=== PATIENT | female | born 1995 | race Asian ===

== ENCOUNTER 2021-12-10 12:24 | Inpatient (IN) | payer MEDICAID, SELFPAY ==
[~2021-12-10] VITALS: Ht 160 cm; Wt 49.0 kg
[2021-12-10 12:35] VITALS: BP 118/56
--- NOTE | 2021-12-10 12:45 | NUR ---
JAIMIE. HANDED ON URINE CUP.
[2021-12-10] MEDS ORDERED: KETOROLAC 15 MG/ML VIAL IM ONE (14:40)
--- NOTE | 2021-12-10 14:52 | NUR ---
pt requesting to stay in car and refusing to stay in bed at this at time
--- NOTE | 2021-12-10 15:30 | NUR ---
26 y/o F BIB self from home c/o LLQ pain s/p normal vaginal delivery on 11/28/21. Patient A&Ox4, ambulatory, states pain persistent since after vaginal delivery. Pt reports 03/24, cramping/constant, radiating to suprapubic region. Patient also states dysuria. Denies fever, chills, nausea, vomiting, diarrhea, constipation, chest pain, urinary symptoms. Patient also endorses vaginal bleeding saturating 2 pads/day with "dark/bright red blood" with "a couple dime sized clots." Patient also states odor; denies vaginal discharge, discomfort, itchiness. States Ibuprofen at 1100 this morning without relief to symptoms. Last BM: this morning; normal. Suprapubic region tender to touch. PMH/Sx/Meds: Denies NKDA
--- NOTE | 2021-12-10 15:40 | NUR ---
Dr. Go is evaluating patient in chair.
[2021-12-10 16:38] LABS: BASOPHILS # (AUTO) 0.1 K/uL (0.00-0.22); BASOPHILS % (AUTO) 0.5 % (0.0-2.0); EOSINOPHILS # (AUTO) 0.1 K/uL (0-0.4); HEMATOCRIT 36.8 % (36-48); HEMOGLOBIN 12.3 g/dL (12.0-16.0); LYMPHOCYTES # (AUTO) 2.3 K/uL (2.5-16.5); LYMPHOCYTES % (AUTO) 19.4 % (20.5-51.1); MEAN CORPUSCULAR HEMOGLOBIN 30 pg (27-31); MEAN CORPUSCULAR HGB CONC 33 g/dL (33-37); MEAN CORPUSCULAR VOLUME 89.8 fL (80-94); MONOCYTES # (AUTO) 0.6 K/uL (0.8-1.0); MONOCYTES % (AUTO) 4.6 % (1.7-9.3); NEUTROPHILS # (AUTO) 8.9 K/uL (1.8-7.7); NEUTROPHILS % (AUTO) 74.5 % (42.2-75.2); PLATELET COUNT (AUTO) 499 K/uL (140-450); RED CELL DISTRIBUTION WIDTH 13.6 % (11.6-13.7)
[2021-12-10 17:23] LABS: ANION GAP 13.5 (8-16); CARBON DIOXIDE 25.5 mmol/L (21-32); CREATININE 0.6 mg/dL (0.6-1.3)
[2021-12-10 17:31] LABS: APPEARANCE,URINE CLOUDY (CLEAR); BILIRUBIN,URINE NEGATIVE (NEGATIVE); BLOOD, URINE 3+ (NEGATIVE); LEUKOCYTE ESTERASE ,URINE 3+ (NEGATIVE); NITRITE, URINE NEGATIVE (NEGATIVE); UGLUCOSE NEGATIVE (NEGATIVE)
[2021-12-10 17:42] LABS: COLOR,URINE YELLOW (YELLOW)
[2021-12-10 18:07] LABS: RBC,URINE TOO NUMEROUS TO COUN /HPF (0-5); WBC,URINE 80-100 /HPF (0-5)
--- NOTE | 2021-12-10 18:54 | NUR ---
dinner tray given at this time, npo after midnight, pt aware.
--- NOTE | 2021-12-10 18:54 | NUR ---
pt swabbed for raul at this time.
[2021-12-10] MEDS ORDERED: POTASSIUM CHLORIDE 10 MEQ TABER PO PRN (19:05)
[2021-12-10] MEDS ORDERED: MORPHINE SULFATE 2 MG/ML SYR IVP PRN (19:05)
[2021-12-10] MEDS ORDERED: ZOLPIDEM 5 MG TAB PO PRN (19:05)
[2021-12-10] MEDS ORDERED: ONDANSETRON 4 MG/2 ML VIAL IM/IVP PRN (19:05)
[2021-12-10] MEDS ORDERED: guaiFENesin DM 200/20 MG-10 ML 10 ML UDC PO PRN (19:05)
[2021-12-10] MEDS ORDERED: DOCUSATE SODIUM 100 MG GELCAP PO PRN (19:05)
[2021-12-10] MEDS ORDERED: PRETAB PO (19:25)
--- NOTE | 2021-12-10 19:25 | NUR ---
REPORT RECEIVED AT BEDSIDE FROM [facility] DEPUTY DISTRICT CUSTOMS DIRECTOR FOR CONTINUITY OF CARE.
--- NOTE | 2021-12-10 19:57 | NUR ---
LAB AT BEDSIDE TO OBTAIN BLOOD CULTURES
[2021-12-10] MEDS ORDERED: AMPICILLIN/SULBACTAM 3 GM VIAL ONE (20:18)
[2021-12-10] MEDS ORDERED: MISOPROSTOL 100 MCG TAB ONE (20:19)
[2021-12-10 20:33] LABS: PROTHROMBIN TIME 10.4 secs (10.8-13.4)
[2021-12-10 20:38] LABS: CHOL/HDL RATIO 5.8 (1-4.5); FREE T4 (FREE THYROXINE) 1.3 ng/dL (0.76-1.46); MAGNESIUM 2.1 mg/dL (1.8-2.4); PHOSPHORUS 3.6 mg/dL (2.5-4.9); THYROID STIMULATING HORMONE 0.55 uIU/mL (0.34-3.74)
[2021-12-10] MEDS: DEXT 5% /NACL 0.9% 1,000 ML IV SCH (20:38)
[2021-12-10] MEDS: AMPICILLIN/SULBACTAM 3 GM in NACL 0.9% 100 ML IV SCH (20:38)
[2021-12-10] MEDS: MISOPROSTOL 200 MCG TAB PO SCH (20:38)
--- NOTE | 2021-12-10 21:01 | NUR ---
ANTIBIOTICS AND IVF STARTED. REPORT GIVEN TO SREEDHAR BARRIOS VIA TELEPHONE FOR PT TRANSFER.
--- NOTE | 2021-12-10 21:07 | NUR ---
Patient will be admitted to care of DR. PETTIT. Admited to TELE. Will go to room 104A. Belongings list completed. Report to DENIS ELI.
[2021-12-10] MEDS ORDERED: CLINDAMYCIN 900 MG/6 ML VIAL IV ONE (21:45)
[2021-12-10] MEDS: CLINDAMYCIN 900 MG in DEXTROSE 5% 100 ML IV SCH (21:47)
[2021-12-10] MEDS: HYDROcodone/APAP 7.5/325 MG 1 TAB PO PRN (21:55)
[2021-12-10 22:00] VITALS: BP 120/58
--- NOTE | 2021-12-10 22:00 | NUR ---
ADMITTED THIS 26 YEAR OLD FEMALE FROM ER PER JERROD WITH CC OF ABDOMINAL PAIN AND VAGINAL BLEEDING, AMBULATED TO BED WITH STEADY GAIT, VITAL SIGNS STABLE, ORIENTED TO ROOM AND CALL LIGHT, STATED WITH MODERATE VAGINAL BLEEDING, 6/10 PAIN LEVEL AT THIS TIME, WILL MEDICATE PRN, PLAN OF CARE DISCUSSED, INSTRUCTED NPO AFTER MIDNIGHT, SAFETY MEASURES IN PLACE, CALL LIGHT WITHIN REACH.
[2021-12-11] MEDS: MISOPROSTOL 200 MCG TAB PO SCH ×6 (00:20→20:58)
[2021-12-11] MEDS ORDERED: AMPICILLIN/SULBACTAM 3 GM VIAL ONE ×2 (00:25→05:22)
[2021-12-11] MEDS: AMPICILLIN/SULBACTAM 3 GM in NACL 0.9% 100 ML IV SCH ×2 (00:34→06:29)
--- NOTE | 2021-12-11 00:50 | NUR ---
PT COMPLAINING OF LEFT BREAST PAIN DUE TO CURRENTLY LACTATING, BREAST PUMP PROVIDED AND WARM COMPRESS APPLIED TO SITE, ALL NEEDS ATTENDED
[2021-12-11 04:00] VITALS: BP 115/73
[2021-12-11] MEDS ORDERED: CLINDAMYCIN 900 MG/6 ML VIAL IV ONE (04:08)
[2021-12-11] MEDS: CLINDAMYCIN 900 MG in DEXTROSE 5% 100 ML IV SCH (04:22)
[2021-12-11] MEDS ORDERED: cefTRIAXone 1,000 MG VIAL ONE (05:35)
--- NOTE | 2021-12-11 05:40 | NUR ---
PT SLEEPING, EASILY AROUSABLE, FIRST DOSE OF ROCEPHIN IVPB ADMINISTERED, MAINTAINED ON NPO, MONITORED CLOSELY.
--- NOTE | 2021-12-11 07:20 | NUR ---
RECEIVED REPORT FROM GRAPHIC PRODUCTION ARTIST NURSE FOR CONTINUITY OF CARE. PT ASLEEP IN BED. BREATHING SYMMETRICAL. RIGHT WRIST 20G RUNNING NS AT 80CC/HR. FLACC O. CALL LIGHT WITHIN REACH. ALL SAFETY MEASURES IN PLACE.
--- NOTE | 2021-12-11 07:20 | NUR ---
PT SLEEPING, NO SIGNS OF DISTRESS, REPORT GIVEN TO RN ROX FOR CONTINUITY OF CARE.
[2021-12-11 07:23] LABS: ANION GAP 11.8 (8-16); CARBON DIOXIDE 26.1 mmol/L (21-32); CREATININE 0.7 mg/dL (0.6-1.3); POTASSIUM 3.9 mmol/L (3.5-5.1)
[2021-12-11] MEDS: DEXT 5% /NACL 0.9% 1,000 ML IV SCH ×3 (07:35→23:44)
[2021-12-11 07:57] LABS: BASOPHILS % (AUTO) 0.3 % (0.0-2.0); EOSINOPHILS # (AUTO) 0.2 K/uL (0-0.4); EOSINOPHILS % (AUTO) 2.1 % (0.0-4.0); HEMATOCRIT 32.5 % (36-48); HEMOGLOBIN 11.1 g/dL (12.0-16.0); LYMPHOCYTES # (AUTO) 1.9 K/uL (2.5-16.5); LYMPHOCYTES % (AUTO) 22.9 % (20.5-51.1); MEAN CORPUSCULAR HEMOGLOBIN 31 pg (27-31); MEAN CORPUSCULAR HGB CONC 34 g/dL (33-37); MEAN CORPUSCULAR VOLUME 89.1 fL (80-94); MONOCYTES # (AUTO) 0.6 K/uL (0.8-1.0); MONOCYTES % (AUTO) 7.8 % (1.7-9.3); NEUTROPHILS # (AUTO) 5.5 K/uL (1.8-7.7); NEUTROPHILS % (AUTO) 66.9 % (42.2-75.2); PLATELET COUNT (AUTO) 470 K/uL (140-450); RED BLOOD CELL COUNT(AUTO) 3.65 MIL/uL (4.20-5.40); RED CELL DISTRIBUTION WIDTH 13.5 % (11.6-13.7); WHITE BLOOD COUNT (AUTO) 8.2 K/uL (4.8-10.8)
[2021-12-11] MEDS: PANTOPRAZOLE 40 MG TABEC PO SCH (09:24)
--- NOTE | 2021-12-11 09:40 | NUR ---
SCHEDULED AM MEDICATIONS GIVEN ORDERED. NOTED WITH ENGORGED BREASTS, ENCOURAGED TO USE BREAST PUMP AND WARM COMPRESS ALSO GIVEN AND APPLIED. ENCOURAGED TO ALWAYS CALL FOR ASSISTANCE
[2021-12-11] MEDS: ACETAMINOPHEN 325 MG TAB PO PRN ×2 (09:41→16:26)
--- NOTE | 2021-12-11 13:00 | NUR ---
PATIENT HAS BEEN SCREENED AND CATEGORIZED LOW NUTRITION RISK. PATIENT WILL BE SEEN WITHIN 7 DAYS OF ADMISSION. 12/17/21 REVIEWED BY VILMA GARCIA RD
--- NOTE | 2021-12-11 13:57 | NUR ---
CLARIFIED WITH DR MAHER PT'S DIET. PT WAS NPO AND CHANGED TO REGULAR. PER OKDONYA TO PROCEED WITH REGULAR DIET FOR NOW.
[2021-12-11 16:00] VITALS: BP 120/67
--- NOTE | 2021-12-11 17:35 | NUR ---
RECEIVED ORDERS FROM DR MARIE, PT AWARE.
[2021-12-11] MEDS: AMPICILLIN 2,000 MG in NACL 0.9% 100 ML IV SCH ×2 (18:31→23:33)
--- NOTE | 2021-12-11 19:17 | NUR ---
ENDORSED PT TO SENIOR PHP WEB DEVELOPER NURSE. PT IN STABLE CONDITION
--- NOTE | 2021-12-11 19:30 | NUR ---
RECEIVED BEDSIDE REPORT FROM DAY SHIFT RN FOR CONTINUITY OF CARE. PT IS AWAKE. PT IS NOT IN ANY DISTRESS. BREATHING RHYTHMIC AND UNLABORED. IVF RUNNING PER MD ORDER. CALL LIGHT WITHIN REACH. ALL SAFETY MEASURES TAKEN. WILL CONTINUE TO MONITOR THE PT.
[2021-12-11 20:00] VITALS: BP 118/78
[2021-12-11] MEDS: GENTAMICIN 60 MG in DEXTROSE 5% 100 ML IV SCH (20:18)
[2021-12-11] MEDS: CLINDAMYCIN 900 MG in DEXTROSE 5% 50 ML IV SCH (21:14)
--- NOTE | 2021-12-11 21:20 | NUR ---
ALL DUE MEDS GIVEN. NO ADVERSE REACTION NOTED. WILL CONTINUE TO MONITOR THE PT.
[2021-12-11] MEDS: HYDROcodone/APAP 7.5/325 MG 1 TAB PO PRN (21:45)
--- NOTE | 2021-12-12 00:15 | NUR ---
PT IS SLEEPING IN BED COMFORTABLY. PT IS NOT IN ANY DISTRESS. BREATHING RHYTHMIC AND UNLABORED. IVF RUNNING PER MD ORDER. COMMUNICATION BOARD UPDATED. CALL LIGHT WITHIN REACH. ALL SAFETY MEASURES TAKEN. WILL CONTINUE TO MONITOR THE PT.
--- NOTE | 2021-12-12 00:40 | NUR ---
PT COMPLAIN OF PAIN. PT ASKED FOR PAIN MEDICATION. PRN PAIN MEDICATION GIVEN PER MD ORDER. NO FURTHER COMPLAINS FROM THE PT. WILL CONTINUE TO MONITOR THE PT Addendum: 12/12/21 at 0042 by Burton Mccarty RN DOCUMENTED ON WRONG PT.
--- NOTE | 2021-12-12 03:23 | NUR ---
PT IS SLEEPING IN BED COMFORTABLY. PT IS NOT IN ANY DISTRESS. BREATHING RHYTHMIC AND UNLABORED. IVF RUNNING PER MD ORDER. CALL LIGHT WITHIN REACH. ALL SAFETY MEASURES TAKEN. WILL CONTINUE TO MONITOR THE PT.
[2021-12-12] MEDS: GENTAMICIN 60 MG in DEXTROSE 5% 100 ML IV SCH ×2 (03:59→12:22)
[2021-12-12 04:00] VITALS: BP 104/68
[2021-12-12] MEDS: CLINDAMYCIN 900 MG in DEXTROSE 5% 50 ML IV SCH ×2 (05:00→13:00)
[2021-12-12] MEDS: AMPICILLIN 2,000 MG in NACL 0.9% 100 ML IV SCH ×2 (06:25→12:00)
--- NOTE | 2021-12-12 06:30 | NUR ---
ALL DUE MEDS GIVEN. NO ADVERSE REACTION NOTED. WILL CONTINUE TO MONITOR THE PT.
[2021-12-12 07:08] LABS: ANION GAP 11.6 (8-16); CARBON DIOXIDE 25.2 mmol/L (21-32); CREATININE 0.7 mg/dL (0.6-1.3); POTASSIUM 3.8 mmol/L (3.5-5.1)
--- NOTE | 2021-12-12 07:28 | NUR ---
ENDORSED PT TO DAY SHIFT RN FOR CONTINUITY OF CARE. PT IS STABLE.
--- NOTE | 2021-12-12 07:29 | NUR ---
RECEIVED REPORT FROM BODY CORPORATE MANAGER NURSE FOR CONTINUITY OF CARE. PT IS IN BED SLEEPING AT THIS TIME. RESPIRATIONS ARE EVEN AND UNLABORED ON ROOM AIR. NO SIGNS OF DISTRESS NOTED. PT ALERT AND ORIENTED X4. ABLE TO VERBALIZE NEEDS TO STAFF. PT IS ABLE TO AMBULATE INDEPENDENTLY. PT HAS FULL ROM TO UPPER AND LOWER EXTREMITIES. NO LIMITATIONS NOTED. PT ABD IS NONTENDER, NONDISTENDED WITH BOWEL SOUNDS PRESENT. PT HAS IV TO R WRIST 20G. SKIN IS WARM, DRY, AND INTACT. CALL LIGHT WITHIN REACH. ALL SAFETY MEASURES IN PLACE. WILL CONTINUE TO MONITOR.
[2021-12-12 07:34] LABS: BASOPHILS % (AUTO) 0.4 % (0.0-2.0); EOSINOPHILS # (AUTO) 0.2 K/uL (0-0.4); EOSINOPHILS % (AUTO) 3.8 % (0.0-4.0); HEMATOCRIT 31.2 % (36-48); HEMOGLOBIN 10.7 g/dL (12.0-16.0); LYMPHOCYTES # (AUTO) 2.1 K/uL (2.5-16.5); LYMPHOCYTES % (AUTO) 38.9 % (20.5-51.1); MEAN CORPUSCULAR HEMOGLOBIN 31 pg (27-31); MEAN CORPUSCULAR HGB CONC 34 g/dL (33-37); MONOCYTES # (AUTO) 0.5 K/uL (0.8-1.0); MONOCYTES % (AUTO) 10.2 % (1.7-9.3); NEUTROPHILS # (AUTO) 2.5 K/uL (1.8-7.7); NEUTROPHILS % (AUTO) 46.7 % (42.2-75.2); PLATELET COUNT (AUTO) 410 K/uL (140-450); RED CELL DISTRIBUTION WIDTH 13.4 % (11.6-13.7); WHITE BLOOD COUNT (AUTO) 5.3 K/uL (4.8-10.8)
[2021-12-12 08:00] VITALS: BP 107/68
[2021-12-12] MEDS: PANTOPRAZOLE 40 MG TABEC PO SCH (08:37)
--- NOTE | 2021-12-12 08:40 | NUR ---
ADMINISTERED ALL SCHEDULED MEDICATIONS. EDUCATED PT REGARDING MEDS ADMINISTERED. PT VERBALIZED UNDERSTANDING. WILL CONTINUE TO MONITOR.
[2021-12-12] MEDS ORDERED: GENTAMICIN PER PHARMACY MC SCH (09:00)
[2021-12-12 09:07] LABS: T4 (THYROXINE) 12.2 ug/dL (4.5-12.0)
--- NOTE | 2021-12-12 10:27 | NUR ---
ULTRA SOUND TECH CALLED TO INFORM ME THAT THEY ATTEMPTED VAGINAL US ORDERED, AND PT BEGAN TO SCREAM AND WAS REFUSING. INFORMED DR MARIE. ORDERS TO CANCEL US. WILL CONTINUE TO MONITOR.
--- NOTE | 2021-12-12 12:22 | NUR ---
IV ANTIBIOTIC ADMINISTERED BY SREEDHAR KOHLI. WILL CONTINUE TO MONITOR.
--- NOTE | 2021-12-12 14:43 | NUR ---
DC PLANNING: THE PATIENT PRESENTED WITH ABDOMINAL PAIN S/P NVD ON 11/28 WITH DYSURIA AND BLEEDING. US SHOWS POSSIBLE SMALL AMOUNT OF RETAINED PRODUCTS OF CONCEPTION, ORIGINAL PLAN WAS FOR D&C, REVISED PLAN IS TO DC THE PATIENT HOME WITH PO ABX AND F/U WITH LEGAL LIBRARIAN. CM SPOKE WITH THE PATIENT AT BEDSIDE, SHE STATES SHE LIVES IN A SINGLE STORY HOUSE WITH A FRIEND. ADDRESS AND PHONE NUMBER FOR PATIENT CONFIRMED, SHE HAS NO ACTIVITY LIMITATIONS OR OTHER HEALTH ISSUES. PATIENT TO DC HOME WHEN CLINICALLY STABLE, NO DC NEEDS IDENTIFIED. CM WILL FOLLOW.
[2021-12-12] MEDS ORDERED: PANT40EC56 PO (15:50)
[2021-12-12] MEDS ORDERED: DOCU-299 PO (15:50)
[2021-12-12 16:00] VITALS: BP 107/68
--- NOTE | 2021-12-12 16:01 | NUR ---
PER DR MARIE, HE HAS SENT PRESCRIPTION FOR ANTIBIOTICS TO PT'S PHARMACY
--- NOTE | 2021-12-12 16:39 | NUR ---
PT DISCHARGED HOME. WENT OVER DISCHARGE PAPERWORK. ANSWERED ALL QUESTIONS. PT SIGNED ALL PAPERWORK. REMOVED IV. IV CATHETER INTACT. ALL BELONGINGS TAKEN UPON DISCHARGE.
== END 2021-12-12 16:35 | disposition home or self-care (01) | DRG 561 ==
LOC: MED 12:24 → MMU 18:58 → MTU 19:50
PROVIDERS: ADMIT Family Medicine; ATTEND Family Medicine
DX: O85 Puerperal sepsis (principal); E86.0 Dehydration; D64.9 Anemia, unspecified; D75.839 Thrombocytosis, unspecified; N39.0 Urinary tract infection, site not specified; Z20.822 Contact with and (suspected) exposure to COVID-19; E78.2 Mixed hyperlipidemia; O73.1 Retained portions of placenta and membranes, without hemorrhage; O99.285 Endocrine, nutritional and metabolic diseases complicating the puerperium; O90.89 Other complications of the puerperium, not elsewhere classified
CPT/HCPCS: 36415; 71045; 76830; 80048; 81001; 82150; 83036; 83690; 83735; 83880; 84100; 84436; 84439; 84443; 84479; 84484; 85025; 85610; 85730; 87040; 87081; 87086; 96372; 99285; J0290; J0295; J0696; J1580; J1885; J3490; J7060; Q0092

== ENCOUNTER 2021-12-14 17:29 | Inpatient (IN) | payer MEDICAID, SELFPAY ==
[~2021-12-14] VITALS: Ht 160 cm; Wt 48.5 kg
[~2021-12-14 17:29] MED LIST: DOCU-299 PO; PANT40EC56 PO; PRETAB PO
[2021-12-14 17:32] VITALS: BP 116/91
--- NOTE | 2021-12-14 17:43 | NUR ---
26 Y/O F AMBULATED TO BED 12, C/O SENT BY DR MARIE FOR D&C, , DELIVED 11/28/21, LOWER PELVIC PAIN, VAGINAL BLEEDING, VAGINAL DISCHARGE WITH FOUL SMELL. pmh: none meds: none NKDA
[2021-12-14 18:58] LABS: BASOPHILS % (AUTO) 0.6 % (0.0-2.0); EOSINOPHILS # (AUTO) 0.1 K/uL (0-0.4); EOSINOPHILS % (AUTO) 1.3 % (0.0-4.0); HEMATOCRIT 35.5 % (36-48); LYMPHOCYTES % (AUTO) 28.9 % (20.5-51.1); MEAN CORPUSCULAR HEMOGLOBIN 30 pg (27-31); MEAN CORPUSCULAR HGB CONC 34 g/dL (33-37); MEAN CORPUSCULAR VOLUME 88.1 fL (80-94); MONOCYTES # (AUTO) 0.4 K/uL (0.8-1.0); MONOCYTES % (AUTO) 6.4 % (1.7-9.3); NEUTROPHILS # (AUTO) 4.4 K/uL (1.8-7.7); NEUTROPHILS % (AUTO) 62.8 % (42.2-75.2); PLATELET COUNT (AUTO) 443 K/uL (140-450); RED BLOOD CELL COUNT(AUTO) 4.02 MIL/uL (4.20-5.40); RED CELL DISTRIBUTION WIDTH 13.4 % (11.6-13.7)
[2021-12-14] MEDS ORDERED: KETOROLAC 30 MG/ML VIAL IVP ONE (19:15)
--- NOTE | 2021-12-14 19:27 | NUR ---
Pt report given to SREEDHAR RAYMOND. Transfer of care at this time.
[2021-12-14] MEDS ORDERED: COMMUNICATION ORDER MC PRN (20:35)
[2021-12-14] MEDS ORDERED: GENTAMICIN PER PHARMACY MC PRN (20:35)
[2021-12-14] MEDS ORDERED: MORPHINE SULFATE 4 MG/ML SYR IVP PRN (20:35)
[2021-12-14] MEDS ORDERED: ONDANSETRON 4 MG/2 ML VIAL IVP PRN (20:35)
[2021-12-14] MEDS ORDERED: CLINDAMYCIN 900 MG in DEXTROSE 5% 100 ML IV SCH (21:00)
--- NOTE | 2021-12-14 21:30 | NUR ---
PER PHARMACY, CREATININE LEVEL IS NEEDED FOR ANBX FROM ADMITTING ORDERS. DR. MOJICA MADE AWARE AND HAVE ORDERED CMP.
--- NOTE | 2021-12-14 21:33 | NUR ---
Patient will be admitted to care of DR. RICO MARIE. Admited to MED/SURG. Will go to room 107A. Belongings list completed. Report to SARAH.
[2021-12-14 21:55] LABS: ALBUMIN 3.4 g/dL (3.4-5.0); ANION GAP 13.8 (8-16); CARBON DIOXIDE 28.4 mmol/L (21-32); CREATININE 0.8 mg/dL (0.6-1.3); POTASSIUM 4.2 mmol/L (3.5-5.1); TOTAL BILIRUBIN 0.4 mg/dL (0.0-1.0)
[2021-12-14] MEDS: LACTATED RINGERS 1,000 ML IV SCH (22:11)
[2021-12-14 22:14] VITALS: BP 110/65
--- NOTE | 2021-12-14 22:17 | NUR ---
PER NURSE - SHE DID NOT STARTED YET THE ABXS IV BECAUSE PHARMACIST TOLD TO HER SHE HAVE TO WAIT THE RESULT OF SERUM BUN ,CREATININE BEFORE ABXS TO BE STARTED - BUN AND CREA RESULT - STILL PENDING .
--- NOTE | 2021-12-14 22:45 | NUR ---
PER PHARMACIST THE CLINDAMYCIN AND AMPICILLIN ARE NOT COMPATIBLE TO LR , WHILE THE GARAMYCIN IS COMPATIBLE TO LR . I VERIFIED TO PHARMACIST IF OK IF I WILL UN HOOK THE LR AND USE NSS WHILE GIVING THOSE ABXS UNCOMPATIBLE TO LR AND THE WE WILL RE HOOK THE LR AFTER GIVING THE MEDICINE AND THE PHARMACIST SAID " YES " - WILL ENDORSE .
[2021-12-14] MEDS ORDERED: CLINDAMYCIN 900 MG/6 ML VIAL IV ONE (22:49)
[2021-12-14] MEDS ORDERED: GENTAMICIN 80 MG in DEXTROSE 5% 100 ML IV SCH (23:00)
[2021-12-15] MEDS ORDERED: AMPICILLIN 2,000 MG in NACL 0.9% 100 ML IV SCH ×2
[2021-12-15] MEDS ORDERED: GENTAMICIN 80 MG/2 ML VIAL ONE (00:17)
--- NOTE | 2021-12-15 00:38 | NUR ---
INFORMED PHARMACY TO REVISE THE FREQUENCY ( TIME ) OF ABXS ON THE EMAR - BECAUSE WE GAVE ABXS TOO LATE BECAUSE ER NURSE ENDORSE TO ME I HAVE TO WAIT THE RESULT OF SERUM BUN AND CREA BEFORE WE START THE ABXS TIV - WHEN THE PT GOT HERE THE SERUM BUN AND CREA RESULT ARE STILL PENDING - SO THAT WE STARTED THE WHEN THE TIME THE RESULT OF BUN AND CREA ARE IN - THE PHARMACIST SAID - HE WILL REVISE THE SCHEDULE OF ABXS. - WILL ENDORSE .
--- NOTE | 2021-12-15 01:27 | NUR ---
WAITING JOURNEYMAN WIREMAN TO GIVE ME AMPICILLIN .
[2021-12-15] MEDS ORDERED: AMPICILLIN 1,000 MG VIAL ONE ×2 (01:28→06:11)
[2021-12-15] MEDS: AMPICILLIN 2,000 MG in NACL 0.9% 100 ML IV SCH ×3 (01:45→13:00)
--- NOTE | 2021-12-15 01:50 | NUR ---
AMPICILLIN 2 GRAMS - UNSCANABLE - 4 WITNESSES - THAT THE MEDICINE (AMPICILLIN 2 GRMS ) THAT I WILL GIVE : WITNESSES : PATROL POLICE SERGEANT JENNI , , PARTY HOST/HOSTESSJLUIS FRANCE .
[2021-12-15] MEDS: LACTATED RINGERS 1,000 ML IV SCH (03:03)
[2021-12-15 04:00] VITALS: BP 100/56
[2021-12-15] MEDS ORDERED: CLINDAMYCIN 900 MG in DEXTROSE 5% 100 ML IV SCH (06:00)
[2021-12-15] MEDS ORDERED: CLINDAMYCIN 900 MG/6 ML VIAL IV ONE (06:22)
--- NOTE | 2021-12-15 07:11 | NUR ---
HARBOR DEPARTMENT MANAGER BY OR STAFF . STABLE .
[2021-12-15] MEDS ORDERED: PROPOFOL 200 MG/20 ML VIAL IV ONE (07:34)
[2021-12-15] MEDS ORDERED: fentaNYL citrate 0.05 MG/ML VIAL ONE (07:35)
[2021-12-15] MEDS ORDERED: SEVOFLURANE 250 ML BTL INH ONE (07:35)
--- NOTE | 2021-12-15 07:35 | NUR ---
AMPICILLIN GAVE TO OR STAFF THEY SAID THEY WILL MANAGE IT .
--- NOTE | 2021-12-15 07:36 | NUR ---
Received report from pm nurse. Pt currently in OR for procedure.
[2021-12-15] MEDS ORDERED: HYDROmorphone 1 MG/ML AMP IVP PRN (07:45)
[2021-12-15] MEDS ORDERED: ONDANSETRON 4 MG/2 ML VIAL IVP PRN (07:45)
[2021-12-15] MEDS ORDERED: LACTATED RINGERS 1,000 ML IV SCH (07:45)
[2021-12-15] MEDS ORDERED: MEPERIDINE 25 MG/ML SYR IVP PRN (07:45)
[2021-12-15] MEDS ORDERED: MISOPROSTOL 100 MCG TAB ONE (08:07)
[2021-12-15] MEDS ORDERED: CLINDAMYCIN 900 MG in DEXTROSE 5% 50 ML IV SCH (08:08)
[2021-12-15] MEDS ORDERED: METHYLERGONOVINE 0.2 MG/ML AMP ONE (08:18)
[2021-12-15] MEDS ORDERED: GENTAMICIN 80 MG in DEXTROSE 5% 100 ML IV SCH (08:30)
[2021-12-15] MEDS ORDERED: KETOROLAC 60 MG/2 ML VIAL IM ONE (08:42)
[2021-12-15] MEDS ORDERED: HYDROmorphone PFS 2 MG/ML SYR ONE (08:42)
[2021-12-15] MEDS ORDERED: KETOROLAC 30 MG/ML VIAL IVP ONE (08:45)
[2021-12-15] MEDS ORDERED: KETOROLAC 30 MG/ML VIAL IVP SCH (08:59)
[2021-12-15] MEDS ORDERED: GENTAMICIN IV SCH (09:00)
[2021-12-15] MEDS ORDERED: DEXTROSE 5% IV SCH (09:00)
--- NOTE | 2021-12-15 09:10 | NUR ---
Pt arrived in room 107B via hospital bed, s/p D&C. Patient drowsy, opens eyes to voice, answers appropriately to questions.
[2021-12-15 09:30] VITALS: BP 101/62
--- NOTE | 2021-12-15 09:38 | NUR ---
PATIENT HAS BEEN SCREENED AND CATEGORIZED LOW NUTRITION RISK. PATIENT WILL BE SEEN WITHIN 7 DAYS OF ADMISSION. 12/21/[address]
[2021-12-15] MEDS ORDERED: IBUPROFEN 800 MG TAB PO SCH (14:00)
[2021-12-15] MEDS ORDERED: oxyCODONE/APAP 5/325 MG 1 TAB TAB PO SCH (14:00)
[2021-12-15 16:00] VITALS: BP 106/64
--- NOTE | 2021-12-15 19:20 | NUR ---
DISCHARGE INSTRUCTIONS PROVIDED TO PATIENT: F/U WITH PCP AND COMMISSARY OFFICER, TAKE HOME MEDS ORDERED, MONITOR BLEEDING AND RETURN TO ED IF SOAKING 1 PAD IN 1 HR, USE ICE PACKS TO PROMOTE COMFORT. PATIENT VERBALIZED UNDERSTANDING OF DISCHARGE INSTRUCTIONS. RIGHT AC IV DISCONTINUED, CANNULA INTACT. PT LEFT VIA UBER. ALL BELONGINGS WITH PATIENT UPON DEPARTURE.
== END 2021-12-15 19:20 | disposition home or self-care (01) | DRG 548 ==
LOC: MED 17:29 → MMU 20:52 → MTU 21:29
PROVIDERS: ADMIT Obstetrics & Gynecology; ATTEND Obstetrics & Gynecology
PROC: 10D17ZZ Extraction of Products of Conception, Retained, Via Natural or Artificial Opening (ICD-10-PCS; principal; 2021-12-15 07:30)
DX: O86.12 Endometritis following delivery (principal); O72.1 Other immediate postpartum hemorrhage; O72.2 Delayed and secondary postpartum hemorrhage; Z20.822 Contact with and (suspected) exposure to COVID-19; Z79.899 Other long term (current) drug therapy
CPT/HCPCS: 36415; 80053; 85025; 86886; 86900; 86901; 87081; 96374; 99285; J0290; J1170; J1580; J1885; J2210; J2270; J2405; J2704; J3010; J3490; J7060; J7120